=== PATIENT | male | born 1960 | race Caucasian/White ===

== ENCOUNTER 2024-01-16 07:40 | Emergency (ER) | payer MEDICAID ==
[~2024-01-16] VITALS: Ht 182.9 cm; Wt 140.8 kg
[2024-01-16] MEDS: LIDOcaine 1% 30ml preserv. free vial SQ STA (08:21)
[2024-01-16 09:26] VITALS: TEMP 98
[2024-01-16] MEDS ORDERED: AMOX-101 PO (09:32)
[2024-01-16 10:14] VITALS: BP 148/86; PULSE 89; RESP 16; O2SAT 96
== END 2024-01-16 10:17 | disposition home or self-care (01) ==
LOC: ER 07:41
DX: S61.311A Laceration without foreign body of left index finger with damage to nail, initial encounter (principal); Z79.2 Long term (current) use of antibiotics; W45.8XXA Other foreign body or object entering through skin, initial encounter; Y93.89 Activity, other specified; Y92.89 Other specified places as the place of occurrence of the external cause; Y99.8 Other external cause status
CPT/HCPCS: 11760; 73140; 99285; A6222; J7030; 99283; A6258; A6449

== ENCOUNTER 2024-07-09 20:26 | Inpatient (IN) | payer MEDICAID ==
[~2024-07-09] VITALS: Ht 180.3 cm; Wt 141.3 kg
[2024-07-09 21:04] LABS: BASOPHILS % (AUTO) 0.1 % (0-1); EOSINOPHILS % (AUTO) 0 % (0-6); LYMPHOCYTES # (AUTO) 0.8 X10'3 (1.1-4.8); LYMPHOCYTES % (AUTO) 5.3 % (21-51); MEAN CORPUSCULAR HEMOGLOBIN 30.9 PG (27.0-31.0); MEAN CORPUSCULAR HGB CONC 34.2 g/dL (33.0-36.5); MEAN CORPUSCULAR VOLUME 90.5 FL (78-98); MEAN PLATELET VOLUME 6.9 FL (7.4-10.4); MONOCYTES # (AUTO) 0.9 X10'3 (0-0.9); MONOCYTES % (AUTO) 5.8 % (2-12); NEUTROPHILS # (AUTO) 14.2 X10'3 (1.8-7.7); NEUTROPHILS % (AUTO) 88.8 % (42-75); PLATELET COUNT 253 X10'3 (140-440); RED BLOOD COUNT 4.53 X10'6 (4.70-6.10); RED CELL DISTRIBUTION WIDTH 14.4 % (11.5-14.5); WHITE BLOOD COUNT 15.9 X10'3 (4.5-11.0)
[2024-07-09] MEDS: diltiazem 5mg/ml 5ml inj. IV ONE ×2 (21:15→21:22)
[2024-07-09] MEDS: normal saline 1000ML IV soln IVB ONE ×3 (21:15→21:53)
[2024-07-09] MEDS: magnesium sulf-water 2g/50mL 50 ML IV ONE (21:16)
[2024-07-09 21:29] LABS: ANION GAP 15 (8-16); BLOOD UREA NITROGEN 53 MG/DL (7-18); BUN/CREATININE RATIO 16.5 (10.0-20.0); CALCIUM 9.1 MG/DL (8.5-10.1); CHLORIDE 96 MMOL/L (99-107); CREATININE 3.21 MG/DL (0.60-1.10); GLUCOSE 124 MG/DL (70-104); MAGNESIUM 2.4 MG/DL (1.5-2.4); POTASSIUM 4.2 MMOL/L (3.5-5.1); PRO BRAIN NATRIURETIC PEPTIDE 931 PG/ML (0-125); SODIUM 132 MMOL/L (135-145); TOTAL CARBON DIOXIDE 21.3 MMOL/L (24-32); eCRCL 26 ML/MIN; eGFR 20 ML/MIN
[2024-07-09] MEDS: acetaminophen 1,000mg/100ml IV 100 ML IV ONE (21:34)
[2024-07-09] MEDS: levoFLOXACIN-Levaquin 750MG/D5 150 ML IV ONE (21:38)
[2024-07-09] MEDS: diltiazem 30mg tablet PO ONE (21:54)
[2024-07-09] MEDS ORDERED: ATOR40TA72 PO (22:05)
[2024-07-09] MEDS ORDERED: HYDR25TA4 PO (22:05)
[2024-07-09] MEDS ORDERED: TRIA15CR61 TOP (22:05)
[2024-07-09] MEDS ORDERED: DULA0.75 SQ (22:05)
[2024-07-09] MEDS ORDERED: LISI20TA28 PO (22:05)
[2024-07-09] MEDS ORDERED: MESA0.374 PO (22:05)
[2024-07-09] MEDS ORDERED: acetaminophen 325mg tablet PO PRN (23:15)
[2024-07-09] MEDS ORDERED: ondansetron/PF 4mg/2ml inj IV PRN (23:15)
[2024-07-09] MEDS ORDERED: magnesium sulf-water 4G/100mL 100 ML IV PRN (23:15)
[2024-07-09] MEDS ORDERED: magnesium sulf-water 2g/50mL 50 ML IV PRN (23:15)
[2024-07-09] MEDS ORDERED: potassium Cl 20 mEq SR tablet PO PRN ×2 (23:15)
[2024-07-09] MEDS ORDERED: potassium Cl 40MEQ/1/2NS 520ml 520 ML IV PRN (23:15)
[2024-07-09] MEDS ORDERED: apixaban 5mg tablet PO SCH (23:25)
[2024-07-09 23:58] LABS: POTASSIUM 3.8 MMOL/L (3.5-5.1)
[2024-07-10] VITALS (10 sets, daily range): BP systolic 147–156; BP diastolic 85–116; PULSE 94–108; RESP 17–25; TEMP 97.8; O2SAT 95–97
[2024-07-10] MEDS: vancomycin/NS 1 GM ADD-VANTAGE 250 ML IV ONE (00:07)
[2024-07-10] MEDS: diltiazem-NS 100mg/100ml 100 ML IV SCH (00:08)
[2024-07-10] MEDS: normal saline 1000ml 1,000 ML IV SCH (00:16)
[2024-07-10] MEDS ORDERED: dextrose 50%-water 50ml dispensing syringe IV PRN ×2 (01:40)
[2024-07-10] MEDS ORDERED: glucagon, human recombinant 1mg kit SUBCUT PRN (01:40)
[2024-07-10] MEDS ORDERED: DEXTROSE 15 GM of carb/4 tabs (each vial/BOTTLE has 4 tablets) PO PRN ×2 (01:40)
[2024-07-10] MEDS: ringers solution, lactated 1000ml IV soln IV ONE (01:51)
[2024-07-10] MEDS: apixaban 5mg tablet PO SCH (02:13)
[2024-07-10] MEDS: methylPREDNISolone sod succ/PF 40mg inj. IV SCH (02:13)
[2024-07-10 03:57] LABS: BILIRUBIN,URINE SMALL (Neg); CLARITY,URINE SLIGHTLY CLOUDY (Clear); COLOR,URINE YELLOW (Yellow); GLUCOSE, URINE NEGATIVE (Neg); KETONES,URINE TRACE mg/dl (Neg); LEUKOCYTE ESTERASE ,URINE NEGATIVE (Neg); NITRITES, URINE NEGATIVE (Neg); OCCULT BLOOD,URINE NEGATIVE (Neg); PH,URINE 5.5 (4.8-8.0); PROTEIN,URINE 30 mg/dl (Neg); UA COLLECTION TYPE VOIDED; UROBILINOGEN,URINE 0.2 E.U/dL (0.2-1.0)
[2024-07-10 04:08] LABS: BACTERIA,URINE 2+ /HPF (Neg); MUCUS STRANDS FEW /LPF (Neg); RBC,URINE NONE SEEN /HPF (0-2); SQUAMOUS EPITHELIAL CELL,UR FEW /LPF (FEW); WBC,URINE 0-4 /HPF (0-4)
[2024-07-10 04:09] LABS: AMORPHOUS URATES 1+
[2024-07-10] MEDS: furosemide 10 MG/1 ML 10ml inj IV ONE (07:18)
[2024-07-10 07:20] LABS: BASOPHILS % (AUTO) 0.1 % (0-1); EOSINOPHILS % (AUTO) 0 % (0-6); HEMATOCRIT 36.7 % (42.0-52.0); HEMOGLOBIN 12.5 g/dl (14.0-17.9); LYMPHOCYTES # (AUTO) 0.4 X10'3 (1.1-4.8); LYMPHOCYTES % (AUTO) 3.2 % (21-51); MEAN CORPUSCULAR HEMOGLOBIN 30.8 PG (27.0-31.0); MEAN CORPUSCULAR VOLUME 90.7 FL (78-98); MONOCYTES # (AUTO) 0.5 X10'3 (0-0.9); MONOCYTES % (AUTO) 3.7 % (2-12); NEUTROPHILS # (AUTO) 12.2 X10'3 (1.8-7.7); PLATELET COUNT 229 X10'3 (140-440); RED BLOOD COUNT 4.04 X10'6 (4.70-6.10); RED CELL DISTRIBUTION WIDTH 14.5 % (11.5-14.5); WHITE BLOOD COUNT 13.1 X10'3 (4.5-11.0)
[2024-07-10 07:42] LABS: ALANINE AMINOTRANSFERASE 27 U/L (12-78); ALBUMIN 2.4 G/DL (3.4-5.0); ALBUMIN/GLOBULIN RATIO 0.5 (1.1-1.5); ALKALINE PHOSPHATASE 74 IU/L (46-116); ANION GAP 10 (8-16); ASPARTATE AMINO TRANSFERASE 31 U/L (10-37); BILIRUBIN,TOTAL 0.9 MG/DL (0.1-1.0); BLOOD UREA NITROGEN 44 MG/DL (7-18); BUN/CREATININE RATIO 20.7 (10.0-20.0); CALCIUM 7.9 MG/DL (8.5-10.1); CHLORIDE 104 MMOL/L (99-107); CHOL/HDL RATIO 2.5 (0.00-4.99); CHOLESTEROL 99 MG/DL (0-200); CREATININE 2.13 MG/DL (0.60-1.10); GLUCOSE 154 MG/DL (70-104); HDL CHOLESTEROL 40 MG/DL (35-60); LDL CHOLESTEROL 44 MG/DL (50-100); MAGNESIUM 2.8 MG/DL (1.5-2.4); PHOSPHORUS 2.9 MG/DL (2.3-4.5); POTASSIUM 4.2 MMOL/L (3.5-5.1); SODIUM 134 MMOL/L (135-145); TOTAL CARBON DIOXIDE 20.2 MMOL/L (24-32); TOTAL PROTEIN 7.1 G/DL (6.4-8.2); TRIGLYCERIDES 80 MG/DL (20-135); eCRCL 39 ML/MIN; eGFR 32 ML/MIN
[2024-07-10 07:47] LABS: HEMOGLOBIN A1C 6.7 % (4.5-6.2)
[2024-07-10] MEDS: K and/or MAG REPLACEMENT MC SCH (08:00)
[2024-07-10] MEDS ORDERED: heparin, porcine 5000 units/ml vial SQ SCH (08:00)
[2024-07-10] MEDS: CefTRIAXone/D5W-Rocephin 1gm 50 ML IV SCH (08:38)
[2024-07-10] MEDS: docusate sod 100mg capsule PO SCH (08:39)
[2024-07-10] MEDS: INSULIN LISPRO 100 UNIT/ML INSULN.PEN MULTI-DOSE SQ SCH (08:40)
[2024-07-10] MEDS: azithromycin/NS 500mg/250ml 250 ML IV SCH (09:40)
[2024-07-10] MEDS: ipratropium/albuterol 3ml nebule NEB PRN (11:56)
[2024-07-10] MEDS: vancomycin/NS 1 GM ADD-VANTAGE 250 ML IV SCH (21:31)
[2024-07-11] VITALS (12 sets, daily range): BP systolic 108–150; BP diastolic 65–99; PULSE 91–135; RESP 18–24; TEMP 97.5–98.6; O2SAT 93–96
[2024-07-11] MEDS: Melatonin 3mg tablet PO PRN (01:19)
[2024-07-11 06:42] LABS: BASOPHILS % (AUTO) 0 % (0-1); EOSINOPHILS % (AUTO) 0 % (0-6); HEMOGLOBIN 13.5 g/dl (14.0-17.9); LYMPHOCYTES # (AUTO) 0.6 X10'3 (1.1-4.8); LYMPHOCYTES % (AUTO) 4.7 % (21-51); MEAN CORPUSCULAR HGB CONC 33.6 g/dL (33.0-36.5); MEAN CORPUSCULAR VOLUME 92.1 FL (78-98); MEAN PLATELET VOLUME 7.7 FL (7.4-10.4); MONOCYTES # (AUTO) 0.7 X10'3 (0-0.9); MONOCYTES % (AUTO) 5.3 % (2-12); NEUTROPHILS # (AUTO) 12.3 X10'3 (1.8-7.7); PLATELET COUNT 304 X10'3 (140-440); RED BLOOD COUNT 4.35 X10'6 (4.70-6.10); RED CELL DISTRIBUTION WIDTH 14.9 % (11.5-14.5); WHITE BLOOD COUNT 13.7 X10'3 (4.5-11.0)
[2024-07-11 09:24] LABS: ALANINE AMINOTRANSFERASE 32 U/L (12-78); ALBUMIN 2.3 G/DL (3.4-5.0); ALBUMIN/GLOBULIN RATIO 0.4 (1.1-1.5); ALKALINE PHOSPHATASE 60 IU/L (46-116); ANION GAP 10 (8-16); ASPARTATE AMINO TRANSFERASE 22 U/L (10-37); BILIRUBIN,TOTAL 0.5 MG/DL (0.1-1.0); BLOOD UREA NITROGEN 41 MG/DL (7-18); BUN/CREATININE RATIO 28.7 (10.0-20.0); CALCIUM 8.5 MG/DL (8.5-10.1); CHLORIDE 107 MMOL/L (99-107); CREATININE 1.43 MG/DL (0.60-1.10); GLUCOSE 244 MG/DL (70-104); MAGNESIUM 2.8 MG/DL (1.5-2.4); PHOSPHORUS 2.8 MG/DL (2.3-4.5); POTASSIUM 4.3 MMOL/L (3.5-5.1); SODIUM 140 MMOL/L (135-145); TOTAL CARBON DIOXIDE 23.4 MMOL/L (24-32); TOTAL PROTEIN 7.5 G/DL (6.4-8.2); eCRCL 58 ML/MIN; eGFR 50 ML/MIN
[2024-07-11] MEDS: diltiazem 30mg tablet PO SCH (21:05)
[2024-07-11] MEDS: vancomycin/NS 1 GM ADD-VANTAGE 250 ML IV SCH (21:15)
[2024-07-12] VITALS (24 sets, daily range): BP systolic 101–146; BP diastolic 62–93; PULSE 90–135; RESP 16–24; TEMP 97.1–98.7; O2SAT 94–99
[2024-07-12 07:13] LABS: BASOPHILS % (AUTO) 0.1 % (0-1); EOSINOPHILS % (AUTO) 0 % (0-6); HEMATOCRIT 38.6 % (42.0-52.0); LYMPHOCYTES # (AUTO) 0.5 X10'3 (1.1-4.8); LYMPHOCYTES % (AUTO) 3.4 % (21-51); MEAN CORPUSCULAR HEMOGLOBIN 30.8 PG (27.0-31.0); MEAN CORPUSCULAR HGB CONC 33.8 g/dL (33.0-36.5); MEAN PLATELET VOLUME 7.4 FL (7.4-10.4); MONOCYTES # (AUTO) 1.1 X10'3 (0-0.9); MONOCYTES % (AUTO) 7.8 % (2-12); NEUTROPHILS # (AUTO) 12.1 X10'3 (1.8-7.7); NEUTROPHILS % (AUTO) 88.7 % (42-75); PLATELET COUNT 347 X10'3 (140-440); RED BLOOD COUNT 4.24 X10'6 (4.70-6.10); RED CELL DISTRIBUTION WIDTH 14.7 % (11.5-14.5); WHITE BLOOD COUNT 13.6 X10'3 (4.5-11.0)
[2024-07-12 07:49] LABS: ALANINE AMINOTRANSFERASE 40 U/L (12-78); ALBUMIN 2.4 G/DL (3.4-5.0); ALBUMIN/GLOBULIN RATIO 0.5 (1.1-1.5); ALKALINE PHOSPHATASE 88 IU/L (46-116); ANION GAP 13 (8-16); ASPARTATE AMINO TRANSFERASE 28 U/L (10-37); BILIRUBIN,TOTAL 0.4 MG/DL (0.1-1.0); BLOOD UREA NITROGEN 43 MG/DL (7-18); BUN/CREATININE RATIO 33.6 (10.0-20.0); CALCIUM 8.7 MG/DL (8.5-10.1); CHLORIDE 107 MMOL/L (99-107); CREATININE 1.28 MG/DL (0.60-1.10); GLUCOSE 229 MG/DL (70-104); MAGNESIUM 3.1 MG/DL (1.5-2.4); PHOSPHORUS 2.9 MG/DL (2.3-4.5); SODIUM 142 MMOL/L (135-145); TOTAL PROTEIN 7.2 G/DL (6.4-8.2); eCRCL 65 ML/MIN; eGFR 57 ML/MIN
[2024-07-12] MEDS: diltiazem 30mg tablet PO SCH (08:30)
[2024-07-13] VITALS (10 sets, daily range): BP systolic 111–149; BP diastolic 65–90; PULSE 90–122; RESP 14–20; TEMP 97.2–97.7; O2SAT 95–96
[2024-07-13 07:59] LABS: BASOPHILS # (AUTO) 0.1 X10'3 (0-0.2); BASOPHILS % (AUTO) 0.5 % (0-1); EOSINOPHILS % (AUTO) 0.2 % (0-6); HEMATOCRIT 37.8 % (42.0-52.0); LYMPHOCYTES # (AUTO) 1.3 X10'3 (1.1-4.8); LYMPHOCYTES % (AUTO) 11.5 % (21-51); MEAN CORPUSCULAR HEMOGLOBIN 30.9 PG (27.0-31.0); MEAN CORPUSCULAR HGB CONC 34.3 g/dL (33.0-36.5); MEAN CORPUSCULAR VOLUME 90.1 FL (78-98); MEAN PLATELET VOLUME 6.9 FL (7.4-10.4); MONOCYTES # (AUTO) 1.4 X10'3 (0-0.9); MONOCYTES % (AUTO) 12.2 % (2-12); NEUTROPHILS # (AUTO) 8.4 X10'3 (1.8-7.7); NEUTROPHILS % (AUTO) 75.6 % (42-75); PLATELET COUNT 419 X10'3 (140-440); RED BLOOD COUNT 4.19 X10'6 (4.70-6.10); RED CELL DISTRIBUTION WIDTH 14.9 % (11.5-14.5); WHITE BLOOD COUNT 11.1 X10'3 (4.5-11.0)
[2024-07-13] MEDS: lactose-reduced food (Ensure Enlive) - 237ml bottle PO SCH (08:41)
[2024-07-13 08:53] LABS: CHLORIDE 109 MMOL/L (99-107); GLUCOSE 117 MG/DL (70-104); POTASSIUM 3.9 MMOL/L (3.5-5.1); SODIUM 143 MMOL/L (135-145)
[2024-07-13 08:54] LABS: ALANINE AMINOTRANSFERASE 44 U/L (12-78); ALBUMIN 2.4 G/DL (3.4-5.0); ALBUMIN/GLOBULIN RATIO 0.5 (1.1-1.5); ALKALINE PHOSPHATASE 77 IU/L (46-116); ANION GAP 8 (8-16); ASPARTATE AMINO TRANSFERASE 22 U/L (10-37); BILIRUBIN,TOTAL 0.4 MG/DL (0.1-1.0); BLOOD UREA NITROGEN 28 MG/DL (7-18); BUN/CREATININE RATIO 23.5 (10.0-20.0); CALCIUM 8.8 MG/DL (8.5-10.1); CREATININE 1.19 MG/DL (0.60-1.10); MAGNESIUM 2.2 MG/DL (1.5-2.4); PHOSPHORUS 2.7 MG/DL (2.3-4.5); TOTAL PROTEIN 6.8 G/DL (6.4-8.2); eCRCL 69 ML/MIN; eGFR 62 ML/MIN
[2024-07-13] MEDS: VANCOMYCIN LEVEL IV ONE (09:24)
[2024-07-13] MEDS ORDERED: APIX5TAB3 PO (13:07)
[2024-07-13] MEDS ORDERED: IPRA3AMP9 NEB (13:07)
[2024-07-13] MEDS ORDERED: DILT240C90 PO (13:08)
[2024-07-13] MEDS ORDERED: AMOX1TAB15 PO (13:11)
[2024-07-13] MEDS ORDERED: vancomycin/NS 1 GM ADD-VANTAGE 250 ML IV SCH (13:47)
[2024-07-14] MEDS ORDERED: VANCOMYCIN LEVEL IV ONE (16:30)
== END 2024-07-13 14:34 | disposition home or self-care (01) | DRG 720 ==
LOC: ER 20:26 → ED HOLD 23:20 → PCU 3S 07-10 18:00
PROVIDERS: ADMIT Internal Medicine Sleep Medicine; ATTEND Internal Medicine
DX: A41.9 Sepsis, unspecified organism (principal); N17.9 Acute kidney failure, unspecified; J13 Pneumonia due to Streptococcus pneumoniae; Z20.822 Contact with and (suspected) exposure to COVID-19; E11.9 Type 2 diabetes mellitus without complications; E78.5 Hyperlipidemia, unspecified; I10 Essential (primary) hypertension; I48.91 Unspecified atrial fibrillation; Z79.899 Other long term (current) drug therapy
CPT/HCPCS: 36415; 71045; 80048; 80053; 80061; 80202; 81001; 82570; 82948; 83036; 83605; 83735; 83880; 84100; 84132; 84133; 84145; 84300; 84484; 85025; 87040; 87081; 87502; 87503; 87811; 93005; 93306; 94640; 94660; 94760; 99291; A4615; A6258; A6449; G0378; J0131; J0456; J0696; J1815; J1940; J1956; J2919; J3370; J3490; J7030; J7040; J7120

== ENCOUNTER 2025-04-05 15:11 | Outpatient (CLI) | payer OTHER ==
[~2025-04-05 15:11] MED LIST: AMOX1TAB15 PO; APIX5TAB3 PO; ATOR40TA72 PO; DILT240C90 PO; DULA0.75 SQ; HYDR25TA4 PO; IPRA3AMP9 NEB; LISI20TA28 PO; MESA0.374 PO; TRIA15CR61 TOP
--- NOTE | 2025-04-05 20:25 | RADIOLOGY REPORT ---
EXAM: MR MRI LOWER EXTREMITY RIGHT HISTORY: S/P PARTIAL MEDIAL MENISECTOMY, R KNEE, OSTEOARTHRITIS COMPARISON: None TECHNIQUE: Multiplanar, multisequence imaging of the right knee was performed without contrast FINDINGS: MEDIAL COMPARTMENT: Volume loss of the central body of the medial meniscus with, which may be related to prior partial meniscectomy. Minimal relative diffuse cartilage thinning of the medial weight-bearing compartment. Trace possible subchondral edema of the posterior aspect of the weight-bearing medial femoral condyle (6-22). LATERAL COMPARTMENT: Intact lateral meniscus. No focal chondrosis or subchondral edema. PATELLOFEMORAL COMPARTMENT: Trace subchondral edema of the mesial aspect of the medial patellar facet broad area of partial-thickness chondrosis of the medial patellar facet. CRUCIATE LIGAMENTS: Intact anterior and posterior cruciate ligaments. MEDIAL SUPPORTING STRUCTURES: Intact medial collateral ligament. LATERAL SUPPORTING STRUCTURES: Intact iliotibial band, lateral capsular ligament, fibular collateral ligament, popliteus, and biceps femoris tendons EXTENSOR MECHANISM: Intact JOINT SPACE/FLUID: Trace knee joint effusion. Possible trace ganglion cysts measuring 10 mm of the posterior intercondylar notch BONES: No acute fracture, osseous contusion, or aggressive focal osseous lesion MUSCLES: Normal in signal intensity and morphology NEUROVASCULAR: Unremarkable OTHER: Surrounding subcutaneous adipose tissue edema. IMPRESSION: 1. Volume loss of the central body of the medial meniscus, likely related to prior partial meniscectomy. 2. Trace knee joint effusion. 3. Mild to moderate patellofemoral compartment chondrosis.
== END 2025-04-05 23:59 | disposition home or self-care (01) ==
LOC: MRI02 15:11
PROVIDERS: ATTEND Prevention Professional
DX: M23.203 Derangement of unspecified medial meniscus due to old tear or injury, right knee (principal); M17.31 Unilateral post-traumatic osteoarthritis, right knee
CPT/HCPCS: 73721